=== PATIENT | female | born 2000 | race Caucasian/White ===

== ENCOUNTER 2023-04-24 16:35 | Emergency (ER) | payer OTHER ==
[~2023-04-24] VITALS: Ht 162.6 cm; Wt 70.3 kg
[2023-04-24] MEDS ORDERED: DICLOFENAC POTA50 MG PO (22:06)
== END 2023-04-24 22:43 | disposition home or self-care (01) ==
LOC: ER 16:35
DX: M54.9 Dorsalgia, unspecified (principal); W10.0XXA Fall (on)(from) escalator, initial encounter; Y93.89 Activity, other specified; Y92.018 Other place in single-family (private) house as the place of occurrence of the external cause; Q67.5 Congenital deformity of spine